=== PATIENT | female | born 1945 | race Caucasian/White ===

== ENCOUNTER 2016-08-11 04:36 | Inpatient (IN) | payer OTHER ==
[~2016-08-11] VITALS: Ht 160 cm; Wt 87.4 kg
[~2016-08-11 04:36] MED LIST: ASPIRIN325 MG PO; CALCIUM 500 MG1 EACH PO; CYANOCOBAL1000 MCG/2 IM; FERROUS GLUCON324 MG PO; GLIPIZIDE XL5 MG PO; GLIPIZIDE5 MG PO; IRON325 MG PO; K-DUR10 MEQ PO; K-DUR20 MEQ PO; LASIX40 MG PO; LEVEMIR FL100 UNIT/1 SC; LEVO-T137 MCG PO; LEVO-T150 MCG PO; LISINOPRIL10 MG PO; LITE COAT ASPI325 M1 PO; METFORMIN HCL500 M4 PO; PLAVIX75 MG PO; PROTONIX40 MG PO; ROSUVASTATIN CA20 MG PO; SENNA LAXATIVE25 MG PO; SERTRALINE HCL25 MG PO; ST. JOSEPH ASPI81 MG PO; SYNTHROID150 MCG PO; TOPROL XL50 MG PO
[2016-08-11 05:00] LABS: POINT-OF-CARE METER ID UU14100415
[2016-08-11 05:44] LABS: CHLORIDE 102 mEq/L (99-109); EOSINOPHIL (%) 0.6 % (0-5); EOSINOPHIL COUNT 0.1 K/uL (0-0.3); HEMATOCRIT 43.6 % (36.0-46.0); IMMATURE GRANULOCYTE COUNT 0.1 K/uL; INSTRUMENT ABS NEUTROPHIL CT 7.9 K/uL; LYMPHOCYTE COUNT 1.6 K/uL (1.0-2.8); MCH 23.2 PG (29.0-34.0); MCHC 29.1 G/DL (30.0-36.0); MCV 79.7 FL (83-99); MEAN PLAT.VOLUME 9.4 uM^3 (9.5-12.4); MONOCYTE (%) 7.7 % (3-12); MONOCYTE COUNT 0.8 K/uL (0-0.8); NEUTROPHIL (%) 75.3 % (45-76); NEUTROPHIL COUNT 7.9 K/uL (1.8-6.4); PLATELET COUNT 400 K/uL (156-360); POTASSIUM 4.8 mEq/L (3.7-5.4); RBC DIS.WIDTH-CV 19.5 % (11.8-14.6); RBC DIS.WIDTH-SD 53.8 % (39-53); RED BLOOD COUNT 5.47 M/uL (3.80-5.20); SODIUM 137 mEq/L (136-147)
[2016-08-11 05:47] LABS: GLUCOSE 89 mg/dL (70-99)
[2016-08-11 05:48] LABS: ANION GAP 11 MEQ/L (2-14); TOTAL BILIRUBIN 0.4 mg/dL (0.0-1.0); WHITE BLOOD COUNT 10.5 K/uL (4.1-10.2)
[2016-08-11 05:50] LABS: ALKALINE PHOSPHATASE 85 IU/L (3-129); GFR ESTIMATE (CALCULATED) 26 mL/min/
[2016-08-11 05:51] LABS: UREA NITROGEN (BUN) 50 mg/dL (9-23)
[2016-08-11 05:52] LABS: DIRECT BILIRUBIN 0.2 mg/dL (0.0-0.3)
[2016-08-11 05:54] LABS: LIPASE 58 U/L (1.0-51.0); TROP-I INTERPRETATION NEGATIVE; TROPONIN-I 0.01 ng/mL (0.0-0.30)
[2016-08-11 05:55] LABS: POINT-OF-CARE METER ID UU14100415
[2016-08-11 06:01] LABS: INTER. NORMALIZED RATIO 1.1; PROTHROMBIN TIME 11.1 (9.2-11.2)
[2016-08-11 07:23] LABS: POINT-OF-CARE METER ID UU14100415
[2016-08-11 09:44] LABS: POINT-OF-CARE METER ID UU14100415
[2016-08-11 11:43] LABS: ADD MIUA? YES; BILIRUBIN NEGATIVE; BLOOD NEGATIVE; COLOR YELLOW ((YELLOW)); GLUCOSE (STRIP) NEGATIVE; KETONES NEGATIVE; LEUKOCYTES SMALL; NITRITE NEGATIVE; PROTEIN (STRIP) NEGATIVE; SPECIFIC GRAVITY 1.013 (1.000-1.030); UROBILINOGEN 0.2 MG/DL (0.2-1.0)
[2016-08-11 11:58] LABS: BACTERIA 2+ /HPF; EPITHELIAL CELLS RARE /HPF; HYALINE CASTS 20-30 /LPF; MUCUS TRACE /LPF; RED BLOOD CELLS 0-5 /HPF (0-5); UCUL ADDED? YES
[2016-08-11 13:00] VITALS: BP 107/50
[2016-08-11 14:06] LABS: CREATINE KINASE 34 IU/L (1-294); TOTAL CK 34 IU/L (1-294)
[2016-08-11 14:10] LABS: TROP-I INTERPRETATION NEGATIVE; TROPONIN-I 0.01 ng/mL (0.0-0.30)
[2016-08-11 14:25] LABS: CK-MB 1.8 ng/mL (0.0-4.9)
[2016-08-11 16:39] VITALS: BP 102/51
[2016-08-11 16:43] LABS: POINT-OF-CARE USER ID ENVKC36
[2016-08-11 19:45] LABS: ANION GAP 5 MEQ/L (2-14); CHLORIDE 103 MEQ/L (99-109); CREATINE KINASE 34 IU/L (1-294); GFR ESTIMATE (CALCULATED) 39 mL/min/; POTASSIUM 5.5 MEQ/L (3.7-5.4); SAMPLE HEMOLYSIS CHECK 0; SAMPLE ICTERIC CHECK 0; SAMPLE LIPEMIA CHECK 0; SODIUM 135 MEQ/L (136-147); TOTAL CK 34 IU/L (1-294); UREA NITROGEN (BUN) 42 mg/dL (9-23)
[2016-08-11 19:47] LABS: GLUCOSE 139 mg/dL (70-99)
[2016-08-11 19:48] LABS: TROP-I INTERPRETATION NEGATIVE; TROPONIN-I 0.01 ng/mL (0.0-0.30)
[2016-08-11 21:09] LABS: CK-MB 1.4 ng/mL (0.0-4.9)
[2016-08-11 21:32] LABS: POINT-OF-CARE METER ID UU14174216; POINT-OF-CARE USER ID NUTSLF44
[2016-08-11 21:35] VITALS: BP 122/54
[2016-08-12 00:40] VITALS: BP 94/42
[2016-08-12 04:51] VITALS: BP 96/48
[2016-08-12 06:18] LABS: HEMATOCRIT 37.6 % (36.0-46.0); MCH 23.5 PG (29.0-34.0); MCHC 29.5 G/DL (30.0-36.0); MCV 79.7 FL (83-99); MEAN PLAT.VOLUME 9.8 uM^3 (9.5-12.4); PLATELET COUNT 326 K/uL (156-360); RBC DIS.WIDTH-CV 19.5 % (11.8-14.6); RBC DIS.WIDTH-SD 54.8 % (39-53); RED BLOOD COUNT 4.72 M/uL (3.80-5.20)
[2016-08-12 06:25] LABS: WHITE BLOOD COUNT 7.3 K/uL (4.1-10.2)
[2016-08-12 06:40] LABS: ALKALINE PHOSPHATASE 73 IU/L (3-129); ANION GAP 9 MEQ/L (2-14); CHLORIDE 104 MEQ/L (99-109); GFR ESTIMATE (CALCULATED) 47 mL/min/; GLUCOSE 170 mg/dL (70-99); POTASSIUM 5.1 MEQ/L (3.7-5.4); SAMPLE HEMOLYSIS CHECK 0; SAMPLE ICTERIC CHECK 0; SAMPLE LIPEMIA CHECK 0; SODIUM 138 MEQ/L (136-147); TOTAL BILIRUBIN 0.4 MG/DL (0.0-1.0); UREA NITROGEN (BUN) 39 mg/dL (9-23)
[2016-08-12 07:26] VITALS: BP 129/62
[2016-08-12 08:07] LABS: POINT-OF-CARE METER ID UU14174216; POINT-OF-CARE USER ID ENVKC36
[2016-08-12] MEDS ORDERED: LEVEMIR100 UNIT/2 SC (09:30)
== END 2016-08-12 11:40 | disposition home or self-care (01) | DRG 195 ==
LOC: EME → EDBD 04:36 → 4EAST 08:25 → EDOF 08:25 → 4EAST 12:42
PROVIDERS: Emergency Medicine; Internal Medicine
DX: J18.9 Pneumonia, unspecified organism (principal); E11.649 Type 2 diabetes mellitus with hypoglycemia without coma; E11.621 Type 2 diabetes mellitus with foot ulcer; R68.0 Hypothermia, not associated with low environmental temperature; L97.519 Non-pressure chronic ulcer of other part of right foot with unspecified severity; I25.10 Atherosclerotic heart disease of native coronary artery without angina pectoris; E03.9 Hypothyroidism, unspecified; D64.9 Anemia, unspecified; F03.90 Unspecified dementia, unspecified severity, without behavioral disturbance, psychotic disturbance, mood disturbance, and anxiety; I73.9 Peripheral vascular disease, unspecified; E53.8 Deficiency of other specified B group vitamins; F17.210 Nicotine dependence, cigarettes, uncomplicated; K21.9 Gastro-esophageal reflux disease without esophagitis; M20.42 Other hammer toe(s) (acquired), left foot; F32.9 Major depressive disorder, single episode, unspecified; Z86.73 Personal history of transient ischemic attack (TIA), and cerebral infarction without residual deficits; Z95.2 Presence of prosthetic heart valve; Z95.1 Presence of aortocoronary bypass graft
CPT/HCPCS: 70450; 71020; 72125; 80048; 80048 91; 80053; 80076; 81003; 82550; 82550 91; 82553; 82948; 83605; 83690; 84443; 84484; 85025; 85027; 85610; 85730; 87040; 87077; 87086; 87186; 93005; 99281; 99284; J0360; J0696; J1650; J1815; J7050

== ENCOUNTER 2016-09-04 15:55 | Inpatient (IN) | payer OTHER ==
[~2016-09-04] VITALS: Ht 160 cm; Wt 86.5 kg
[~2016-09-04 15:55] MED LIST changes: +LEVEMIR100 UNIT/2 SC
[2016-09-04 17:23] LABS: HEMATOCRIT 44.3 % (36.0-46.0); MCHC 30.2 G/DL (30.0-36.0); MCV 82.8 FL (83-99); MEAN PLAT.VOLUME 9.1 uM^3 (9.5-12.4); PLATELET COUNT 309 K/uL (156-360); RBC DIS.WIDTH-CV 19.3 % (11.8-14.6); RBC DIS.WIDTH-SD 56.9 % (39-53); RED BLOOD COUNT 5.35 M/uL (3.80-5.20); WHITE BLOOD COUNT 14.2 K/uL (4.1-10.2)
[2016-09-04 17:40] LABS: CHLORIDE 108 mEq/L (99-109); POTASSIUM 4.4 mEq/L (3.7-5.4); SODIUM 139 mEq/L (136-147)
[2016-09-04 17:42] LABS: GLUCOSE 213 mg/dL (70-99)
[2016-09-04 17:43] LABS: ANION GAP 6 MEQ/L (2-14); TROP-I INTERPRETATION NEGATIVE; TROPONIN-I < 0.01 ng/mL (0.0-0.30)
[2016-09-04 17:46] LABS: GFR ESTIMATE (CALCULATED) 52 mL/min/
[2016-09-04 17:47] LABS: UREA NITROGEN (BUN) 25 mg/dL (9-23)
[2016-09-04 18:03] LABS: POINT-OF-CARE METER ID UU13113702
[2016-09-04] MEDS ORDERED: ASPIR-LOW81 MG PO (19:25)
[2016-09-04] MEDS ORDERED: LEVEMIR100 UNIT/2 SC (19:27)
[2016-09-04] MEDS ORDERED: BACTROBAN OINTM22 GM TP (19:30)
[2016-09-04] MEDS ORDERED: VASHE WOUND TH475 ML IR (19:31)
[2016-09-04 21:43] LABS: POINT-OF-CARE METER ID UU13113702
[2016-09-04 23:04] VITALS: BP 128/61
[2016-09-05 00:31] LABS: POINT-OF-CARE METER ID UU13113725
[2016-09-05 02:20] LABS: POINT-OF-CARE METER ID UU13113725
[2016-09-05 04:21] LABS: POINT-OF-CARE METER ID UU13113725
[2016-09-05 06:36] LABS: HEMATOCRIT 40.9 % (36.0-46.0); MCH 24.7 PG (29.0-34.0); MCHC 30.1 G/DL (30.0-36.0); MCV 82.1 FL (83-99); MEAN PLAT.VOLUME 9.3 uM^3 (9.5-12.4); PLATELET COUNT 359 K/uL (156-360); RBC DIS.WIDTH-CV 19.4 % (11.8-14.6); RBC DIS.WIDTH-SD 57.5 % (39-53); RED BLOOD COUNT 4.98 M/uL (3.80-5.20)
[2016-09-05 06:40] LABS: WHITE BLOOD COUNT 6.9 K/uL (4.1-10.2)
[2016-09-05 07:06] LABS: TROP-I INTERPRETATION NEGATIVE; TROPONIN-I 0.01 ng/mL (0.0-0.30)
[2016-09-05 07:20] LABS: POINT-OF-CARE METER ID UU13113725
[2016-09-05 08:01] VITALS: BP 110/74
[2016-09-05 12:56] VITALS: BP 113/55
[2016-09-05 16:48] VITALS: BP 128/58
[2016-09-05 23:00] VITALS: BP 155/70
[2016-09-06 05:49] LABS: POINT-OF-CARE METER ID UU13113725
[2016-09-06 06:55] VITALS: BP 150/70
[2016-09-06] MEDS ORDERED: LEVEMIR100 UNIT/2 SC (08:33)
[2016-09-07 16:23] LABS: POINT-OF-CARE METER ID UU13113702
[2016-09-07 16:24] LABS: POINT-OF-CARE METER ID UU13113725
== END 2016-09-06 10:12 | disposition home or self-care (01) | DRG 638 ==
LOC: EME → EDBD 15:55 → EME 15:55 → EDOF 19:10 → 5EAST 19:10
PROVIDERS: Emergency Medicine; Internal Medicine; Physician Assistant Medical
DX: E11.649 Type 2 diabetes mellitus with hypoglycemia without coma (principal); R68.0 Hypothermia, not associated with low environmental temperature; I25.10 Atherosclerotic heart disease of native coronary artery without angina pectoris; N18.3 Chronic kidney disease, stage 3 (moderate); E78.5 Hyperlipidemia, unspecified; E66.9 Obesity, unspecified; Z68.33 Body mass index [BMI] 33.0-33.9, adult; F03.90 Unspecified dementia, unspecified severity, without behavioral disturbance, psychotic disturbance, mood disturbance, and anxiety; I69.311 Memory deficit following cerebral infarction; I69.398 Other sequelae of cerebral infarction; E03.9 Hypothyroidism, unspecified; I13.0 Hypertensive heart and chronic kidney disease with heart failure and stage 1 through stage 4 chronic kidney disease, or unspecified chronic kidney disease; I50.9 Heart failure, unspecified; E53.8 Deficiency of other specified B group vitamins; I73.9 Peripheral vascular disease, unspecified; Z95.1 Presence of aortocoronary bypass graft; N39.41 Urge incontinence; Z95.3 Presence of xenogenic heart valve
CPT/HCPCS: 71010; 80048; 81003; 82948; 84443; 84484; 85027; 93005; 99281; 99285; J1644; J1815; J3480; J7030

== ENCOUNTER 2017-07-13 11:08 | Emergency (ER) | payer OTHER ==
[~2017-07-13] VITALS: Ht 160 cm; Wt 90.0 kg
[~2017-07-13 11:08] MED LIST changes: +ASPIR-LOW81 MG PO; +BACTROBAN OINTM22 GM TP; +VASHE WOUND TH475 ML IR
[2017-07-13 14:34] LABS: BASOPHIL (%) 0.1 % (0-1); EOSINOPHIL (%) 2.4 % (0-5); EOSINOPHIL COUNT 0.2 K/uL (0-0.3); HEMATOCRIT 41.4 % (36.0-46.0); HEMOGLOBIN 13.5 G/DL (11.9-15.5); IMMATURE GRANULOCYTE (%) 0.3 % (0.0-0.7); LYMPHOCYTE (%) 22.7 % (15-42); LYMPHOCYTE COUNT 1.8 K/uL (1.0-2.8); MCH 28.1 PG (29.0-34.0); MCHC 32.6 G/DL (30.0-36.0); MCV 86.3 FL (83-99); MONOCYTE (%) 9.2 % (3-12); MONOCYTE COUNT 0.7 K/uL (0-0.8); NEUTROPHIL (%) 65.3 % (45-76); NEUTROPHIL COUNT 5.2 K/uL (1.8-6.4); PLATELET COUNT 286 K/uL (156-360)
[2017-07-13 14:43] LABS: CHLORIDE 105 mEq/L (99-109); POTASSIUM 4.8 mEq/L (3.7-5.4); SODIUM 140 mEq/L (136-147)
[2017-07-13 14:44] LABS: PTT 27.7 SEC (25-37)
[2017-07-13 14:45] LABS: GLUCOSE 221 mg/dL (70-99)
[2017-07-13 14:49] LABS: CREATININE 1.1 mg/dL (0.6-1.3); GFR ESTIMATE (CALCULATED) 52 mL/min/
[2017-07-13 14:50] LABS: UREA NITROGEN (BUN) 20 mg/dL (9-23)
[2017-07-13 14:55] LABS: TROP-I INTERPRETATION NEGATIVE; TROPONIN-I < 0.01 ng/mL (0.0-0.30)
[2017-07-13 15:40] LABS: APPEARANCE SL.HAZY ((CLEAR)); BILIRUBIN NEGATIVE; BLOOD SMALL; COLOR YELLOW ((YELLOW)); GLUCOSE (STRIP) NEGATIVE; KETONES NEGATIVE; LEUKOCYTES MODERATE; NITRITE POSITIVE; PROTEIN (STRIP) NEGATIVE; UROBILINOGEN 0.2 MG/DL (0.2-1.0)
[2017-07-13 17:06] LABS: RED BLOOD CELLS NONE SEEN /HPF (0-5)
[2017-07-13 17:07] LABS: BACTERIA 3+ /HPF; EPITHELIAL CELLS 1+ /HPF; MUCUS TRACE /LPF
[2017-07-13 17:08] LABS: WHITE BLOOD CELLS 15-20 /HPF (0-5)
[2017-07-13] MEDS ORDERED: KEFLEX500 MG PO (17:44)
[2017-07-13 18:07] VITALS: BP 179/115
== END 2017-07-13 18:08 | disposition home or self-care (01) ==
LOC: EME 11:08
PROVIDERS: Physician Assistant
DX: N39.0 Urinary tract infection, site not specified (principal); R51 Headache; J98.4 Other disorders of lung; I51.7 Cardiomegaly; R94.31 Abnormal electrocardiogram [ECG] [EKG]; E11.9 Type 2 diabetes mellitus without complications; I10 Essential (primary) hypertension; I25.2 Old myocardial infarction; Z86.73 Personal history of transient ischemic attack (TIA), and cerebral infarction without residual deficits; Z95.1 Presence of aortocoronary bypass graft; Z79.84 Long term (current) use of oral hypoglycemic drugs; Z79.82 Long term (current) use of aspirin; Z79.02 Long term (current) use of antithrombotics/antiplatelets
CPT/HCPCS: 70450; 70496; 70498; 71046; 80048; 81003; 84484; 85025; 85610; 85730; 93005